=== PATIENT | male | born 1995 ===

== ENCOUNTER 2022-03-28 13:29 | Emergency (ER) | payer OTHER, BC ==
[2022-03-28] MEDS ORDERED: diphenhydrAMINE 50 MG/ML SDV IVPUSH ONE (13:32)
[2022-03-28] MEDS ORDERED: HYDROmorphone 1 MG/ML Syringe IVPUSH ONE ×2 (13:32→15:32)
[2022-03-28] MEDS ORDERED: Bacitracin Oint 1 GM U/D Packet TOP ONE (13:32)
[2022-03-28] MEDS ORDERED: Sodium Chloride 0.9% 1,000 ML IV ONE ×2 (13:33→15:32)
[2022-03-28] MEDS ORDERED: Tetracaine HCl/PF 0.5% 4 ML Bottle EYEBOTH ONE (13:33)
[2022-03-28] MEDS ORDERED: Fluorescein 1 MG Ophth Strip EYEBOTH ONE (13:33)
[2022-03-28 14:34] LABS: BLOOD UREA NITROGEN,BUN 14 mg/dL (7.0-18.0); CARBON DIOXIDE,CO2 22.2 mmol/L (21.0-32.0); CHLORIDE,CL 100 mmol/L (98-107); GLUCOSE RANDOM 111 mg/dL (74-106); POTASSIUM,K 3.3 mmol/L (3.5-5.1); SODIUM,NA 138 mmol/L (136-148)
[2022-03-28 14:36] LABS: ESTIMATED GFR 86 mL/min (>60)
[2022-03-28] MEDS ORDERED: Ondansetron 4 MG/2 ML SDV IVPUSH ONE (15:32)
[2022-03-28] MEDS ORDERED: Diphtheria,Pertussis(Acell),Tetanus Vaccine 0.5 ML Syringe IM ONE (16:10)
== END 2022-03-28 17:10 | disposition home or self-care (01) ==
LOC: MW.ED 13:29
DX: T20.00XA Burn of unspecified degree of head, face, and neck, unspecified site, initial encounter (principal); Z23 Encounter for immunization; X08.8XXA Exposure to other specified smoke, fire and flames, initial encounter; Y92.65 Oil rig as the place of occurrence of the external cause
CPT/HCPCS: 36415; 71046; 80053; 82803; 85025; 90471; 90715; 96361; 96374; 96375; 96376; 99285; J1170; J1200; J2405; J7030